=== PATIENT | male | born 1995 | race Caucasian/White ===

== ENCOUNTER 2020-02-28 13:20 | Emergency (ER) | payer OTHER ==
[~2020-02-28] VITALS: Ht 182.9 cm; Wt 79.1 kg
[2020-02-28] MEDS ORDERED: PROC1AER16 PR (13:33)
[2020-02-28] MEDS ORDERED: IBUP80TA PO (13:33)
[2020-02-28] MEDS ORDERED: DIBU10OI TOP (13:33)
[2020-02-28 14:57] VITALS: BP 118/65
== END 2020-02-28 14:57 | disposition home or self-care (01) ==
LOC: M ED 13:20
DX: K64.5 Perianal venous thrombosis (principal)

== ENCOUNTER 2020-12-22 10:06 | Emergency (ER) | payer OTHER ==
[~2020-12-22] VITALS: Ht 182.9 cm; Wt 78.9 kg
[~2020-12-22 10:06] MED LIST: DIBU28OI2 TOP; IBUP80TA PO; PROC1AER16 PR
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
[2020-12-22] MEDS ORDERED: ONDA4TAB6 PO (12:23)
[2020-12-22 12:40] VITALS: BP 144/82
== END 2020-12-22 12:57 | disposition home or self-care (01) ==
LOC: M ED 10:06
DX: S06.0X0A Concussion without loss of consciousness, initial encounter (principal); W50.1XXA Accidental kick by another person, initial encounter; Y92.29 Other specified public building as the place of occurrence of the external cause; Y93.9 Activity, unspecified; Y99.9 Unspecified external cause status; Z88.0 Allergy status to penicillin

== ENCOUNTER 2023-03-17 17:15 | Emergency (ER) | payer OTHER ==
[~2023-03-17] VITALS: Ht 182.9 cm; Wt 81.3 kg
[~2023-03-17 17:15] MED LIST changes: +ONDA4TAB6 PO
[2023-03-17 17:16] VITALS: TEMP 98.3
[2023-03-17 18:24] LABS: BASO % 0.5 % (0.0-1.0); EOS % 0.6 % (0.0-3.0); HEMATOCRIT 46.9 % (42.0-52.0); HEMOGLOBIN 16.4 g/dl (13.5-17.5); LYMPH # 0.5 10^3/uL (1.5-5.0); LYMPH % 8.5 % (24.0-44.0); MEAN CORPUSCULAR HEMOGLOBIN 29.8 pg (27.0-33.0); MEAN CORPUSCULAR VOLUME 85.1 fl (80.0-96.0); MONO # 0.6 10^3/uL (0.0-0.8); MONO % 9.3 % (2.0-8.0); NEUTROPHILS # 5.1 10^3/uL (1.5-8.5); NEUTROPHILS % 80.8 % (36.0-66.0); PLATELET COUNT, AUTOMATED 163 10^3/uL (150-450); RED BLOOD COUNT 5.51 10^6/uL (4.30-6.10); WHITE BLOOD COUNT 6.3 10^3/uL (4.0-10.0)
[2023-03-17 18:36] LABS: INR 1.19; PROTHROMBIN TIME 14.7 SECONDS (12.5-14.5)
[2023-03-17 18:37] LABS: PARTIAL THROMBOPLASTIN TIME 30.6 SECONDS (24.8-34.2)
[2023-03-17 18:49] LABS: CK-MB VALUE MASS < 1.0 NG/ML (<3.6); LIPASE 24 U/L (12-53)
[2023-03-17 18:50] LABS: AMYLASE 49 U/L (30-118)
[2023-03-17 18:51] LABS: ALBUMIN 5.2 G/DL (3.2-5.2); ALKALINE PHOSPHATASE 67 U/L (46-116); ALT/SGPT 34 U/L (7.0-40); AST/SGOT 20 U/L (<34); BILIRUBIN,DIRECT 0.3 MG/DL (<0.4); BILIRUBIN,TOTAL 0.8 MG/DL (0.3-1.2); CPK CREATINE PHOSPHOKINASE 147 U/L (46-171); MB/CK RELATIVE INDEX 0.68 (< OR =4); TOTAL PROTEIN 8.3 G/DL (5.7-8.2)
[2023-03-17] MEDS ORDERED: ISOVUE-370 76% 100ML VIAL As Ordered ONE (18:56)
[2023-03-17 20:16] VITALS: BP 127/89; O2SAT 99
== END 2023-03-17 20:17 | disposition home or self-care (01) ==
LOC: M ED 17:15
DX: R10.9 Unspecified abdominal pain (principal); M54.50 Low back pain, unspecified; F17.220 Nicotine dependence, chewing tobacco, uncomplicated; F10.10 Alcohol abuse, uncomplicated; Z88.0 Allergy status to penicillin
CPT/HCPCS: 36415; 72131; 74177; 80047; 80076; 81001; 82150; 82550; 82553; 83605; 83690; 84484; 85025; 85610; 85730; 86850; 86900; 86901; 99284; Q9967

== ENCOUNTER → 2023-06-22 | Outpatient (CLI) | payer OTHER | LOC: M CARPUL 08:22 | PROVIDERS: ATTEND Physician Assistant | DX: R00.2 Palpitations (principal) ==

== ENCOUNTER → 2023-06-30 | Outpatient (CLI) | payer OTHER ==
[~2023-06-30] MED LIST changes: +METHACHOLINE KIT (6 VIAL.NEB PREMIX) INH ONE
== END ==
LOC: M CARPUL 09:27
PROVIDERS: ATTEND Physician Assistant
DX: R00.2 Palpitations (principal)
CPT/HCPCS: 94070; J7674